=== PATIENT | female | born 1965 | race Caucasian/White ===

== ENCOUNTER 2017-05-11 17:26 | Emergency (ER) | payer OTHER ==
[~2017-05-11] VITALS: Ht 160 cm; Wt 93.0 kg
[2017-05-11 17:37] VITALS: BP 136/80
[2017-05-11] MEDS ORDERED: TRIAMTERENE-HC1 EAC3 (18:23)
--- NOTE | 2017-05-11 18:42 | ED GENERAL ADULT ---
History of Present Illness General Chief Complaint: Lower Extremity Problems Stated Complaint: FEET SWELLING X3 DAYS Source: patient, family Exam Limitations: no limitations Vital Signs & Intake/Output Vital Signs & Intake/Output Vital Signs Date Time Temp Pulse Resp B/P B/P Pulse O2 O2 Flow FiO2 Mean Ox Delivery Rate 05/11 1737 97.0 83 18 136/80 100 Room Air Allergies Coded Allergies: NO KNOWN ALLERGIES (08/24/11) Reconcile Medications Triamterene/Hydrochlorothiazid (Triamterene-Hctz 37.5-25 MG Cp) (Unknown Strength) CAPSULE (Unknown Dose) UNKNOWN (Reported) Triage Note: PT TO ED FOR BILATERAL FEET SWELLING X 1 WEEK, SAW [employer] AND HAD A FULL OUTPATIENT WORK OUT "BUT EVERYTHING WAS FINE." DENIES SOB, [place], CP. PT REPORTING SWELLING IS OFTEN WORSE AT END OF THE DAY, IMPROVED WITH COMPRESSION STOCKINGS AND ELEVATION. NO POSTERIOR CALF PAIN, NO REDNESS. Triage Nurses Notes Reviewed? yes HPI: 51 yo F PMH Fibromyalgia presenting with lower extremity swelling. Patient endorses waxing and waning bilateral lower extremity swelling for the last 1-2 months, states that she has had extensive outpatient evaluation for the same, recently evaluated by vascular surgeon 2 weeks ago, per patient lower extremity Dopplers negative at that time, recently evaluated by painter bottom 1 week ago, normal stress test and echocardiogram. Swelling better than usual today, but worsening pain and "fullness" in legs prompting presentation to the emergency department. Denies fevers, chills, chest pain, palpitations, shortness of breath, urinary symptoms, weakness, numbness, or focal neurologic symptoms. (ARSH SAUCEDA,MARY JO) Past History Travel History Traveled to [place] past 21 day No Medical History Any Pertinent Medical History? none Neurological: NONE EENT: NONE Cardiovascular: NONE Respiratory: NONE Gastrointestinal: NONE Hepatic: NONE Renal: NONE Musculoskeletal: FIBROMYALAGIA Psychiatric: NONE Endocrine: NONE Blood Disorders: NONE Cancer(s): NONE Surgical History Surgical History: none Psychosocial History What is your primary language Irish Tobacco Use: Never used ETOH Use: occasional use Illicit Drug Use: denies illicit drug use Family History Hx Contributory? Yes (MARY JO CABAN MD) Review of Systems Review of Systems Constitutional: Reports: no symptoms. EENTM: Reports: no symptoms. Respiratory: Reports: no symptoms. Cardiovascular: Reports: edema. GI: Reports: no symptoms. Genitourinary: Reports: no symptoms. Musculoskeletal: Reports: no symptoms. Skin: Reports: no symptoms. Neurological/Psychological: Reports: no symptoms. Hematologic/Endocrine: Reports: no symptoms. Immunologic/Allergic: Reports: no symptoms. All Other Systems: Reviewed and Negative (MARY JO CABAN MD) Physical Exam Physical Exam General Appearance: well developed/nourished, no apparent distress, alert, awake Head: normal appearance Eyes: Bilateral: normal appearance. Ears, Nose, Throat: moist mucus membranes Neck: normal inspection, full range of motion Respiratory: normal breath sounds, no respiratory distress, lungs clear Cardiovascular: regular rate/rhythm, normal peripheral pulses Peripheral Pulses: 2+ tibialis posterior (R), 2+ tibialis posterior (L), 2+ dorsalis pedis (R), 2+ dorsalis pedis (L) Gastrointestinal: normal bowel sounds, soft, non-tender Extremities: swelling Comments: Pulmonary: Lungs clear to auscultation bilaterally without crackles Lower extremities: 1+ symmetric bilateral lower extremity nonpitting edema, no associated erythema, no associated tenderness palpation Core Measures ACS in differential dx? No CVA/TIA Diagnosis: No Severe Sepsis Present: No Septic Shock Present: No (ARSH SAUCEDA,MARY JO) Progress Differential Diagnoses I considered the following diagnoses in my evaluation of the patient: [Dependent edema, CHF, renal failure] Plan of Care: Orders Procedure Date/time Status URINALYSIS 05/11 1820 Complete BASIC METABOLIC PANEL 05/11 1820 Complete Laboratory Tests 05/11/17 1831: Anion Gap 9, Estimated GFR 58 L, BUN/Creatinine Ratio 14.0, Glucose 150 H, Calcium 9.2, Urine Color STRAW, Urine Clarity CLEAR, Urine pH 6.0, Ur Specific [place] 1.010, Urine Protein NEG, Urine Ketones NEG, Urine Nitrite NEG, Urine Bilirubin NEG, Urine Urobilinogen 0.2, Ur Leukocyte Esterase NEG, Ur Microscopic SEDIMENT EXAMINED, Urine RBC 3-5, Ur Epithelial Cells MOD H, Urine Bacteria MOD H, Urine Mucus RARE, Urine Hemoglobin SMALL H, Urine Glucose NEG 05/11/171819: D-Dimer High Sensitivty Cancelled Physician MDM: 51 yo F PMH Fibromyalgia presenting with lower extremity swelling. VSS, remainder of exam as above. DDx: Dependent edema, renal failure, less likely CHF given recent unremarkable cardiac workup, less likely DVT given recent negative lower extremity Dopplers. Testing for DVT discussed with patient, unable to obtain lower extremity Dopplers at this time, discussed d- dimer testing, if positive treat empirically with Lovenox and follow-up tomorrow for lower extremity Doppler, patient declined d-dimer testing, states that she would refuse empiric anticoagulation even if d-dimer positive, encouraged to follow up with PMD tomorrow for repeat lower extremity Dopplers. BMP with normal creatinine. UA contaminated with epithelial cells, scant bacteria, no protein, not suggestive of nephrotic syndrome or infection. Given Tylenol with improvement in bilateral lower extremity pain. On reexamination patient resting comfortably, vitals remain stable, explained to patient there was no acute indication for initiation of diuretic therapy, that these medications are best started by a primary care physician or painter bottom who can evaluate patients on a repeat basis. Discharged with return precautions, plan to follow-up PMD in the next 2-3 days for further evaluation, possible initiation of diuretic therapy. The plan of care was discussed with the patient and her son who expressed agreement and understanding. (ARSH SAUCEDA,MARY JO) Initial ED EKG: none (MARY JO CABAN MD) Departure Departure Disposition: HOME OR SELF CARE Condition: Stable Clinical Impression Primary Impression: Swelling of lower extremity Referrals: LINDA SAUCEDA,FAINA Du (PCP/Family) Additional Instructions: Take Tylenol or ibuprofen as needed for pain. Use compression stockings and elevate your legs. Follow-up with your primary care physician in the next 2-3 days. Return to the emergency department for any chest pain, shortness of breath, or fevers. Departure Forms: Customer Survey General Discharge Information (MARY JO CABAN MD) Resident Co-Sign Statement Statement: ED Attending supervision documentation- [] I saw and evaluated the patient. I have also reviewed all the pertinent lab results and diagnostic results. I agree with the findings and the plan of care as documented in the Resident's documentation. [X] I have reviewed the ED Record and agree with the Resident's documentation. [] Additions or exceptions (if any) to the Resident's note and plan are summarized below: [] (GARO SAUCEDA,NISH) Critical Care Note Critical Care Note Critical Care Time: non-applicable (MARY JO CABAN MD)
== END 2017-05-11 19:39 ==
LOC: ERH 17:26
DX: M79.89 Other specified soft tissue disorders (principal)
CPT/HCPCS: 81001